=== PATIENT | female | born 1995 | race Caucasian/White ===

== ENCOUNTER 2022-10-12 00:02 | Emergency (ER) | payer OTHER, SELFPAY ==
--- NOTE | ~2022-10-12 | XR_ITS ---
EXAMINATION: XR FINGER, LEFT CLINICAL INFORMATION: The digital pain COMPARISON: None available. TECHNIQUE: 3 views of the left fifth digit. FINDINGS: There is a comminuted fracture distal fifth metacarpal with moderate soft tissue swelling. Rest of the left hand is unremarkable. No additional fracture seen. There is mild soft tissue swelling distal fifth digit. XR/XR finger LT min 2V IMPRESSION: Comminuted distal fifth metacarpal fracture. There is mild soft tissue swelling distal fifth digit.
[2022-10-12 00:13] VITALS: BP 113/75; PULSE 94; RESP 16; TEMP 37; O2SAT 100; BMI 15.0
--- NOTE | 2022-10-12 01:17 | ED.EXTPRO ---
HPI - Extremity Problem General Chief complaint: Extremity Injury, Upper Stated complaint: injury to pinky finger on L hand Time Seen by Provider: 10/12/22 01:13 Source: patient Mode of arrival: ambulatory Limitations: no limitations History of Present Illness HPI Narrative: Patient got her left hand in the car door came with bony swelling of the lateral aspect of the left hand no other injury no open area Related Data Previous Rx's Medication Instructions Recorded ibuprofen 600 mg tablet 600 mg PO Q6H PRN fever or pain 10/12/22 #30 tabs Allergies Allergy/AdvReac Type Severity Reaction Status Date / Time No Known Allergies Allergy Verified 10/12/22 00:12 Review of Systems Review of Systems: Yes all other systems are reviewed and are negative Physical Exam Vital Signs: Vital Signs: Last Vital Signs Temp 98.6 F 10/12/22 00:13 Pulse 94 10/12/22 00:13 Resp 16 10/12/22 00:13 BP 113/75 10/12/22 00:13 Pulse Ox 100 10/12/22 00:13 O2 Del Method Room Air 10/12/22 00:13 BMI result Body Mass Index 15.0 Extrem: Hand/finger images: 1. Bony deformity and swelling neurovascular intact no open wound Medical Decision Making Medical Decision Making MDM Narrative: Patient with boxer's fracture left hand with angulation more than 60 degrees may need surgery will place her left hand in ulnar gutter splint follow-up with orthopedic Discharge Plan Discharge Clinical Impression: Boxer's fracture Patient Disposition: Home, Self-Care Instructions: Boxer Fracture (ED) Additional Instructions: Wear the splint for support and follow-up with orthopedic for further management Ibuprofen for pain Prescriptions: New ibuprofen 600 mg tablet 600 mg PO Q6H PRN (Reason: fever or pain) Qty: 30 0RF Referrals: Emmie Tai MD [Physician] - 1 week
[2022-10-12] MEDS: Ibuprofen 600 MG TABLET PO (01:44)
== END 2022-10-12 01:47 | disposition home or self-care (01) ==
PROVIDERS: Emergency Provider Internal Medicine
DX: S62.607A Fracture of unspecified phalanx of left little finger, initial encounter for closed fracture (principal); M79.642 Pain in left hand; Y29.XXXA Contact with blunt object, undetermined intent, initial encounter; Y93.9 Activity, unspecified; Y92.9 Unspecified place or not applicable; Y99.9 Unspecified external cause status
CPT/HCPCS: 29130; 73140; 99284

== ENCOUNTER 2022-10-24 10:58 | Outpatient (REF) | payer OTHER, SELFPAY | END 2022-10-24 10:59 | disposition home or self-care (01) | LOC: HO.HOSX 10:58 | PROVIDERS: Visit Provider Orthopaedic Surgery | DX: Z13.89 Encounter for screening for other disorder (principal) ==

== ENCOUNTER 2022-11-05 11:24 | Outpatient (REF) | payer OTHER, SELFPAY | END 2022-11-05 11:25 | disposition home or self-care (01) | LOC: HO.HOSX 11:24 | PROVIDERS: Visit Provider Orthopaedic Surgery | DX: Z13.89 Encounter for screening for other disorder (principal) ==

== ENCOUNTER 2022-11-11 11:14 | Outpatient (REF) | payer OTHER, SELFPAY ==
--- NOTE | ~2022-11-11 | XR_ITS ---
EXAMINATION: XR HAND, LEFT CLINICAL INFORMATION: Pain follow-up fracture. COMPARISON: Left finger 10/12/2022 TECHNIQUE: PA, lateral, and oblique views of the left hand. FINDINGS: There is a comminuted distal fifth metacarpal fracture with moderate callus formation. The fracture line is still visualized. There is volar angulation. Rest of the left hand is unremarkable. The soft tissues are unremarkable. XR/XR hand LT min 3V IMPRESSION: Comminuted distal fifth metacarpal fracture with moderate callus formation. The fracture line is still visualized. There is volar angulation. The soft tissues are unremarkable
== END 2022-11-11 11:15 | disposition home or self-care (01) ==
LOC: HO.HOSX 11:14
PROVIDERS: Visit Provider Orthopaedic Surgery
DX: S62.367A Nondisplaced fracture of neck of fifth metacarpal bone, left hand, initial encounter for closed fracture (principal); M25.642 Stiffness of left hand, not elsewhere classified
CPT/HCPCS: 73130; 99202

== ENCOUNTER 2022-11-11 12:27 | Outpatient (AMB) | payer OTHER, SELFPAY ==
[2022-11-11 12:57] VITALS: BMI 15.4
--- NOTE | 2022-11-11 12:57 | MHC.OFFVIS ---
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 States a car door was shut on her hand causing it to swell. Seen in ED where a fracture was confirm. Currently states she is not able to make a full close fist due to pain. Pain is mainly in 4th & 5th digit. States she was given a splint in ED but removed it due to increase pain. At times she has numbness and tingling. 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 She says she hit her car door, DOI: 10/12/22. She was seen the same day in the ED and was given a splint to wear, which she removed at home due to it causing her pain. She complains of pain in her ring and small fingers primarily, and she is unable to make a full fist due to her pain She has missed her previous appointments x2 since this injury and this is the first time being seen here [facility]PLACED BY [facility] Social History (Updated 11/11/22 @ 13:03 by AMBER Meadows) Alcohol intake: current Current occupational status: disabled Current occupation: left hand Review of Systems Const All systems reviewed & are unremarkable except as noted in HPI and below Physical Exam Vital Signs: BMI result Body Mass Index 15.4 Const General: cooperative, healthy appearing and no acute distress Orientation/consciousness: patient oriented x3 HEENT Head: Yes normocephalic and Yes atraumatic Eyes EOM: EOMs intact bilaterally Resp Effort & Inspection: normal respiratory effort and able to speak in complete sentences Cardio Jugular venous distension: no JVD Skin General skin exam: turgor normal Rashes: no rashes Neuro General: patient oriented x3 Extrem Other: Evaluation of Left Upper Extremity: The patient is alert, oriented, and in no acute distress Neuro: Median, Ulnar, Radial nerves motor and sensory intact and sensation is normal to the tips of all digits Vascular: Cap refill brisk ROM: She was somewhat apprehensive about having her hand touched today She was very apprehensive about bringing her fingers closed to a fist, but with encouragement she could make a fist with all digits and extend all her digits When fully extending her fingers, she has a barely visible apex dorsal deformity of her 5th metacarpal She could bring her 5th MCP joint to ~90 degrees of flexion No rotational mal-alignment Minimally tender over the fracture site Her swelling has resolved Radiographs: 3 views of the left hand, with attention to the small finger, were taken and viewed by me today in clinic. They show a 5th metacarpal neck fracture with some evidence of interval bony healing and ~30 degrees apex dorsal angulation. Psych Appearance: grossly normal Affect: normal affect Attitude: cooperative Office Procedures Fracture Care Details: Metacarpal fracture 26148 Fracture Billing Code: Fracture Billing Code Assessment & Plan Assessment & Plan (1) Nondisplaced fracture of neck of fifth metacarpal bone of left hand: Code(s): S62.367A - Nondisplaced fracture of neck of fifth metacarpal bone, left hand, initial encounter for closed fracture (2) Stiffness of left hand joint: Code(s): M25.642 - Stiffness of left hand, not elsewhere classified Plan Assessment & Plan: 1. Left 5th metacarpal neck fracture With ~30 degrees apex dorsal angulation From an injury, DOI: 10/12/22 She appears to be healing well, and has reasonable range of motion I educated her about this condition I discussed the importance of activity modification and working on her ROM She will work on ROM exercises at home, 20X daily She is to limit or avoid any heavy lifting, impact activities, or activities prone to falling for the next 4 weeks. This includes roughhousing with her children She will follow up in 4 weeks for a ROM check, with X-rays, 3V L hand, attn SF She may cancel this if she is doing well Scribed for Emmie Tai MD by Morgan Car, medical records receptionist, on 11/11/22 at 1:35 PM, EST. Orders: Orders XR hand LT min 3V Today M79.642 - Pain in left hand Coding Level of Care Code New Pt Level 3 (18026) Diagnoses Nondisplaced fracture of neck of fifth metacarpal bone of left hand S62.367A Stiffness of left hand joint M25.642 CPT Codes Fracture Care - Fracture Billing Code: Fracture Billing Code ([id number])
== END 2022-11-11 13:46 | disposition home or self-care (01) ==
PROVIDERS: Visit Provider Orthopaedic Surgery
DX: S62.367A Nondisplaced fracture of neck of fifth metacarpal bone, left hand, initial encounter for closed fracture (principal); M25.642 Stiffness of left hand, not elsewhere classified
CPT/HCPCS: 99203

== ENCOUNTER 2022-12-10 05:05 | Outpatient (REF) | payer OTHER, SELFPAY | END 2022-12-10 05:06 | disposition home or self-care (01) | LOC: HO.HOSX 05:05 | PROVIDERS: Visit Provider Orthopaedic Surgery | DX: Z13.89 Encounter for screening for other disorder (principal) ==

== ENCOUNTER 2023-01-01 10:48 | Outpatient (REF) | payer OTHER, SELFPAY | END 2023-01-01 10:49 | disposition home or self-care (01) | LOC: HO.HOSX 10:48 | PROVIDERS: Visit Provider Physician Assistant | DX: Z13.89 Encounter for screening for other disorder (principal) ==

== ENCOUNTER 2024-04-22 03:04 | Emergency (ER) | payer OTHER, SELFPAY ==
--- NOTE | ~2024-04-22 | XR_ITS ---
CLINICAL HISTORY: pain 5th finger 3 view right hand Comparison: None Findings: Fracture identified at the proximal aspect of the 5th metacarpal which appears mildly displaced. No clear intra-articular extension of the fracture line on the provided radiographic images. No radiopaque foreign body. IMPRESSION: 1. Mildly displaced fracture present at the proximal aspect of the right 5th metacarpal. This document has been electronically signed by: Adelso Vyas MD on 04/22/2024 04:22:20
[2024-04-22 03:13] VITALS: BP 101/63; PULSE 51; PULSE 58; RESP 16; TEMP 36.9; O2SAT 99; BMI 17.2
[2024-04-22 03:16] VITALS: BP 101/63; PULSE 51; RESP 16; TEMP 36.9; O2SAT 99
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
[2024-04-22 03:58] VITALS: BP 99/53; PULSE 64; RESP 16; TEMP 36.8; O2SAT 100
== END 2024-04-22 04:03 ==
LOC: HO.ED 04:03
PROVIDERS: Emergency Provider Internal Medicine
DX: S60.051A Contusion of right little finger without damage to nail, initial encounter (principal); S62.336A Displaced fracture of neck of fifth metacarpal bone, right hand, initial encounter for closed fracture; X58.XXXA Exposure to other specified factors, initial encounter; Y93.9 Activity, unspecified; Y92.149 Unspecified place in prison as the place of occurrence of the external cause; Y99.9 Unspecified external cause status
CPT/HCPCS: 29130; 73120; 99283; 99284

== ENCOUNTER → 2024-04-22 03:34 | Outpatient (BNV) | payer OTHER, SELFPAY | PROVIDERS: Emergency Provider Internal Medicine; Visit Provider Radiology Diagnostic Radiology | DX: S62.336A Displaced fracture of neck of fifth metacarpal bone, right hand, initial encounter for closed fracture (principal) | CPT/HCPCS: 73120 ==